=== PATIENT | female | born 1975 | race Caucasian/White ===

== ENCOUNTER 2025-03-15 16:23 | Emergency (ER) | payer SELFPAY ==
[~2025-03-15] VITALS: Ht 167.6 cm; Wt 70.3 kg
[2025-03-15 17:42] VITALS: BP 130/80; O2SAT 99
== END 2025-03-15 17:42 | disposition home or self-care (01) ==
LOC: ER 16:38
DX: S91.012A Laceration without foreign body, left ankle, initial encounter (principal); S90.02XA Contusion of left ankle, initial encounter; S90.32XA Contusion of left foot, initial encounter; W22.8XXA Striking against or struck by other objects, initial encounter; Y93.89 Activity, other specified; Y92.89 Other specified places as the place of occurrence of the external cause; Y99.8 Other external cause status
CPT/HCPCS: A4606; A4663